=== PATIENT | male | born 1985 | race Caucasian/White ===

== ENCOUNTER 2017-08-04 12:56 | Emergency (ER) | payer MEDICAID ==
[~2017-08-04] VITALS: Ht 165.1 cm; Wt 81.8 kg
[~2017-08-04 12:56] MED LIST: NO HOME MEDS
[2017-08-04 13:05] VITALS: BP 119/69
[2017-08-04] MEDS ORDERED: ALBU8.5H8 IH (14:27)
== END 2017-08-04 14:54 | disposition home or self-care (01) ==
LOC: ER 12:57
DX: J06.9 Acute upper respiratory infection, unspecified (principal); Z86.14 Personal history of Methicillin resistant Staphylococcus aureus infection; Z79.899 Other long term (current) drug therapy
CPT/HCPCS: 99283

== ENCOUNTER 2018-06-07 18:17 | Emergency (ER) | payer MEDICAID ==
[~2018-06-07] VITALS: Ht 165.1 cm; Wt 79.5 kg
[~2018-06-07 18:17] MED LIST changes: +ALBU8.5H8 IH; -NO HOME MEDS
[2018-06-07 18:58] VITALS: BP 120/65
== END 2018-06-07 20:49 | disposition home or self-care (01) ==
LOC: ER 18:18
DX: S20.212A Contusion of left front wall of thorax, initial encounter (principal); Z86.14 Personal history of Methicillin resistant Staphylococcus aureus infection; Z79.899 Other long term (current) drug therapy; V89.2XXA Person injured in unspecified motor-vehicle accident, traffic, initial encounter; Y93.89 Activity, other specified; Y92.89 Other specified places as the place of occurrence of the external cause; Y99.8 Other external cause status
CPT/HCPCS: 99281

== ENCOUNTER 2019-10-25 10:25 | Emergency (ER) | payer MEDICAID ==
[~2019-10-25] VITALS: Ht 165.1 cm; Wt 65.0 kg
--- NOTE | 2019-10-25 11:11 | NUR ---
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
[2019-10-25 11:37] LABS: HEMOGLOBIN 14.5 g/dl (14.0-17.9); PLATELET COUNT 229 X10'3 (140-440); RED CELL DISTRIBUTION WIDTH 12.8 % (11.5-14.5)
[2019-10-25 11:38] LABS: BASOPHILS # (AUTO) 0.1 X10'3 (0-0.2); BASOPHILS % (AUTO) 0.5 % (0-1); EOSINOPHILS # (AUTO) 0.2 X10'3 (0-0.9); EOSINOPHILS % (AUTO) 2.2 % (0-6); HEMATOCRIT 42.5 % (42.0-52.0); LYMPHOCYTES # (AUTO) 1.5 X10'3 (1.1-4.8); LYMPHOCYTES % (AUTO) 13.8 % (21-51); MEAN CORPUSCULAR HEMOGLOBIN 30.8 PG (27.0-31.0); MEAN CORPUSCULAR HGB CONC 34.2 g/dL (33.0-36.5); MEAN CORPUSCULAR VOLUME 90.1 FL (78-98); MEAN PLATELET VOLUME 8.7 FL (7.4-10.4); MONOCYTES # (AUTO) 0.7 X10'3 (0-0.9); MONOCYTES % (AUTO) 6.7 % (2-12); NEUTROPHILS # (AUTO) 8.2 X10'3 (1.8-7.7); NEUTROPHILS % (AUTO) 76.8 % (42-75); RED BLOOD COUNT 4.71 X10'6 (4.70-6.10); WHITE BLOOD COUNT 10.7 X10'3 (4.5-11.0)
[2019-10-25 11:47] LABS: ALANINE AMINOTRANSFERASE 19 U/L (12-78); ALBUMIN 3.4 G/DL (3.4-5.0); ALBUMIN/GLOBULIN RATIO 0.9 (1.1-1.5); ALKALINE PHOSPHATASE 66 IU/L (46-116); ANION GAP 4 (8-16); ASPARTATE AMINO TRANSFERASE 12 U/L (10-37); BILIRUBIN,TOTAL 0.8 MG/DL (0.1-1.0); BLOOD UREA NITROGEN 11 MG/DL (7-18); BUN/CREATININE RATIO 11.3 (5.4-32.0); CALCIUM 8.8 MG/DL (8.5-10.1); CHLORIDE 105 MMOL/L (99-107); CREATININE 0.97 MG/DL (0.60-1.10); GLUCOSE 95 MG/DL (70-104); POTASSIUM 3.7 MMOL/L (3.5-5.1); SODIUM 140 MMOL/L (135-145); TOTAL CARBON DIOXIDE 31.2 MMOL/L (24-32); TOTAL PROTEIN 7.1 G/DL (6.4-8.2); eGFR 88 ML/MIN
[2019-10-25] MEDS ORDERED: CEPH250T PO (11:48)
[2019-10-25] MEDS ORDERED: CefTRIAXone 1000mg IM Kit (w/lidocaine diluent) IM ONE (11:50)
[2019-10-25 12:03] VITALS: BP 106/71
== END 2019-10-25 12:04 | disposition home or self-care (01) ==
LOC: ER 10:26
DX: M70.21 Olecranon bursitis, right elbow (principal); F15.90 Other stimulant use, unspecified, uncomplicated; Z72.89 Other problems related to lifestyle; Z86.14 Personal history of Methicillin resistant Staphylococcus aureus infection; Z79.899 Other long term (current) drug therapy; Y93.89 Activity, other specified
CPT/HCPCS: 36415; 73080; 80053; 85025; 85651; 96372; 99284; J0696

== ENCOUNTER 2022-05-18 20:43 | Emergency (ER) | payer MEDICAID ==
[~2022-05-18] VITALS: Ht 165.1 cm; Wt 81.8 kg
[~2022-05-18 20:43] MED LIST changes: +ALBU8.5H17 IH; -ALBU8.5H8 IH
[2022-05-18 21:03] VITALS: BP 129/71
== END 2022-05-18 21:41 ==
LOC: ER 20:44
DX: S09.93XA Unspecified injury of face, initial encounter (principal); Z86.14 Personal history of Methicillin resistant Staphylococcus aureus infection; F15.90 Other stimulant use, unspecified, uncomplicated; Z72.89 Other problems related to lifestyle; Z98.890 Other specified postprocedural states; Y35.91XA Legal intervention, means unspecified, law enforcement official injured, initial encounter; Y93.89 Activity, other specified; Y92.89 Other specified places as the place of occurrence of the external cause; Y99.8 Other external cause status
CPT/HCPCS: 99283

== ENCOUNTER 2023-11-13 12:03 | Emergency (ER) | payer MEDICAID ==
[~2023-11-13] VITALS: Ht 165.1 cm; Wt 92.3 kg
[2023-11-13] MEDS ORDERED: AMOX500C2 PO (12:31)
[2023-11-13] MEDS: amoxicillin 250mg capsule PO ONE (12:40)
[2023-11-13 12:43] VITALS: BP 122/68; PULSE 70; RESP 16; TEMP 98.1; O2SAT 99
== END 2023-11-13 12:44 | disposition home or self-care (01) ==
LOC: ER 12:04
DX: K02.9 Dental caries, unspecified (principal); K04.7 Periapical abscess without sinus; Z79.2 Long term (current) use of antibiotics; F15.90 Other stimulant use, unspecified, uncomplicated; F19.90 Other psychoactive substance use, unspecified, uncomplicated; Z72.89 Other problems related to lifestyle
CPT/HCPCS: 99283